=== PATIENT | female | born 1990 | race Caucasian/White ===

== ENCOUNTER 2017-08-07 09:03 | Outpatient (CLI) | payer BC ==
--- NOTE | 2017-08-07 11:18 | Diagnostic Imaging Report ---
Indication: Chronic headache Technique: Continuous helical CT scanning of the head was performed utilizing automated exposure control without intravenous contrast material. Axial and coronal reconstructions were obtained. Comparison: None CT dose: Total DLP 1354.59 mGycm; CTDI vol 70.38 mGy Findings: There is no acute intracranial hemorrhage, mass effect, midline shift or cortical edema. Size and configuration of ventricular system is within normal limits. The posterior fossa and fourth ventricle are unremarkable. Sellar and suprasellar regions are grossly unremarkable. Visualized mastoid air cells and paranasal sinuses are unremarkable. Incidental note is made of pneumatization of the bilateral petrous apices. There is a high riding jugular bulb on the right. No focal lesions of the bony calvarium or soft tissues of the scalp are seen. IMPRESSION: No evidence of intracranial hemorrhage, mass effect, midline shift or cortical edema. MRI may be obtained for more sensitive evaluation as clinically indicated. The CT scanner at [facility] is accredited by the [employer] and the scans are performed using protocols designed to limit radiation exposure to as low as reasonably achievable to attain images of sufficient resolution adequate for diagnostic evaluation.
== END 2017-08-07 11:03 | disposition home or self-care (01) ==
LOC: CAT 09:03
DX: R51 Headache (principal)
CPT/HCPCS: 70450